=== PATIENT | male | born 1975 | race Caucasian/White ===

== ENCOUNTER → 2019-07-18 | Outpatient (CLI) | payer BC ==
--- NOTE | 2019-07-18 08:41 | CT ---
EXAMINATION TYPE: CT facial bones wo con DATE OF EXAM: 07/18/2019 COMPARISON: None HISTORY: 43-year-old male Facial injury TECHNIQUE: Contiguous axial scanning of the facial bones without IV contrast. Coronal reconstructions performed. CT DLP: 594 mGycm Automated exposure control for dose reduction was used. FINDINGS: 1.9 cm mucosal retention cyst posterior left maxillary sinus. Some mild lobulated mucosal thickening also noted in the right maxillary sinus. Leftward nasal septal deviation. Nasal bones, pterygoid plates, zygomatic arches, and the facial bones appear intact. Orbits and globes also appear intact. Visualized mastoid air cells and middle ear cavities are well pneumatized. Visualized intracranial structures show no gross abnormality. IMPRESSION: 1. RIGHTWARD NASAL SEPTAL DEVIATION AND MILD CHRONIC MAXILLARY SINUS DISEASE, LEFT GREATER THAN RIGHT . 2. NO ACUTE FACIAL BONE FRACTURE SEEN.
== END | disposition home or self-care (01) ==
LOC: RADCTMAIN 07:53
PROVIDERS: ATTEND Otolaryngology
DX: J34.2 Deviated nasal septum (principal); J32.0 Chronic maxillary sinusitis
CPT/HCPCS: 70486

== ENCOUNTER 2023-05-14 14:28 | Day surgery (SDC) | payer BC ==
[2023-05-12 11:26] VITALS: BMI 25.5
[~2023-05-14 14:28] MED LIST: LACTATED RINGERS 1,000 ML IV SCH
[2023-05-14] MEDS ORDERED: LACTATED RINGERS 1,000 ML IV ONE (14:40)
[2023-05-14 14:45] VITALS: TEMP 97.7
[2023-05-14] MEDS ORDERED: PROPOFOL 10 MG/ML 20 ML VIAL IV ONE (15:41)
--- NOTE | 2023-05-14 15:59 | P.PCN ---
Date of Procedure: 05/14/23 Procedure(s) Performed: BRIEF HISTORY: Patient is a 47-year-old pleasant male scheduled for an elective colonoscopy as a part of evaluation of prior history of colon polyps. His last colonoscopy was 5 years ago. He has family history of colon cancer in his first cousin at age 40 PROCEDURE PERFORMED: Colonoscopy with snare polypectomy. PREOPERATIVE DIAGNOSIS: History of colon polyps and family history of colon cancer. IV sedation per Anesthesia. PROCEDURE: After informed consent was obtained, the patient, was brought into the endoscopy unit. IV sedation was administered by Anesthesia under continuous monitoring. Digital rectal examination was normal. Initially the Olympus CF-160 flexible video colonoscope was then inserted in the rectum, gradually advanced into the cecum without any difficulty. Careful examination was performed as the scope was gradually being withdrawn. Ileocecal valve and the appendiceal orifice were visualized and appeared normal. Prep was excellent. Mucosa of the cecum, ascending colon appeared normal. In the transverse colon there was a 5 mm sessile polyp removed by snare polypectomy. Rest of the, transverse colon, descending colon, sigmoid colon, and rectum appeared normal. Retroflexion was performed in the rectum and no lesions were seen. The patient tolerated the procedure well. IMPRESSION: 5 mm transverse colon polyp status post polypectomy Rest of the colon appeared normal RECOMMENDATIONS: Findings of this examination were discussed with the patient as well as his family. He was advised to follow with the biopsy results and have a repeat colonoscopy in 5 years.
[2023-05-14 16:31] VITALS: BP 126/79; PULSE 53; RESP 20
== END 2023-05-14 16:55 ==
LOC: ORWHC2ENDO 14:28
PROVIDERS: ATTEND Internal Medicine Gastroenterology
DX: Z12.11 Encounter for screening for malignant neoplasm of colon (principal); K63.5 Polyp of colon; Z86.010 Personal history of colon polyps; Z80.0 Family history of malignant neoplasm of digestive organs; Z79.899 Other long term (current) drug therapy; Z88.8 Allergy status to other drugs, medicaments and biological substances
CPT/HCPCS: 45385; J2704

== ENCOUNTER → 2024-04-05 | Outpatient (CLI) | payer BC ==
--- NOTE | 2024-04-05 11:17 | XR ---
EXAMINATION TYPE: XR soft tissue neck DATE OF EXAM: 04/05/2024 COMPARISON: NONE HISTORY: Pain TECHNIQUE: 2 views submitted FINDINGS: Postsurgical changes left clavicle. There is mild to moderate hypertrophic arthropathy. C5- 6 and C6-C7. Chronic rib cage deformity on the left. No radiopaque foreign body. Prevertebral soft ti ssue structures are normal. Epiglottis has a normal appearance. Airway appears patent. Tiny linear de nsity seen posterior to the hyoid bone on the lateral view. 2 small to characterize. IMPRESSION: No definite radiopaque foreign body.
== END | disposition home or self-care (01) ==
LOC: RADXRMAIN 09:59
PROVIDERS: ATTEND Otolaryngology
DX: R07.0 Pain in throat (principal)
CPT/HCPCS: 70360

== ENCOUNTER → 2024-04-13 | Outpatient (CLI) | payer BC ==
--- NOTE | 2024-04-13 10:00 | CT ---
EXAMINATION TYPE: CT soft tissue neck w con CT DLP: 446.6 mGycm, Automated exposure control for dose reduction was used. DATE OF EXAM: 04/13/2024 8:26 AM COMPARISON: 11/17/2019. CLINICAL INDICATION:Male, 48 years old with history of T17.208A UNSP FOREIGN BODY IN PHARYNX CAUSING OTH; PHH, pt states fish bone stuck in throat around left side of yaron's apple x3 weeks TECHNIQUE: Standard enhanced CT of the neck. Axial sections with coronal and sagittal reformats were obtained. Contrast used:100 mL of Isovue 300 with IV Contrast, (None if empty) Oral contrast used: (None if empty) FINDINGS: Brain: Visualized portions are grossly unremarkable. Orbits: Unremarkable Sinuses: Grossly unremarkable. Spaces of the neck: Clear and symmetric. No radiopaque foreign bodies identified within the pharynx o r within the visualized esophagus. The trachea and larynx also absent of radiopaque foreign body. Musculoskeletal: No acute osseous pathology. Lymph nodes: Multiple nonenlarged lymph nodes are seen along both anterior chains of the neck. Vascular structures: Visualized major arteries are patent without evidence of aneurysm. Thoracic Inlet/airway: Airway is patent. The lung apices are clear. Soft tissues/Thyroid: Thyroid and remainder of the soft tissues are unremarkable. Other: none. IMPRESSION No radiopaque foreign body within the pharynx or esophagus.
== END | disposition home or self-care (01) ==
LOC: RADCTMAIN 07:44
PROVIDERS: ATTEND Otolaryngology
DX: T17.208A Unspecified foreign body in pharynx causing other injury, initial encounter (principal)
CPT/HCPCS: 70491; Q9967

== ENCOUNTER 2025-05-28 17:29 | Emergency (ER) | payer BC ==
--- NOTE | 2025-05-28 17:46 | ED ---
Abdominal Pain HPI - General Chief Complaint: Abdominal Pain Stated Complaint: L Side Abd Pain Time Seen by Provider: 05/28/25 17:45 Source: patient, family, RN notes reviewed Limitations: no limitations - History of Present Illness Initial Comments: 49-year-old male presented to ER for evaluation of left lower quadrant abdominal pain. Patient reports about 2 days ago he was noticing a bilateral lower quadrant abdominal discomfort. He states over the past couple of days pain has become focally to the left lower quadrant. He states it is a sharp consistent pain making it difficult to cough and walk. Patient is taken [id number] Aleve for current symptoms. Patient denies any fevers, chills, diarrhea/constipation, dysuria, increasing urinary frequency or hematuria. He denies any back pain. Prior abdominal surgery of appendectomy. No history of ulcerative colitis or Crohn's disease. Patient also admits to a history of kidney stones but states this feels different. No other complaints - Related Data Home Medications Medication Instructions Recorded Confirmed Glucosamine Sulfate 1,000 mg PO DAILY 05/12/23 05/12/23 Multivit,Calc,Min/FA/K1/Lycop 1 each PO DAILY 05/12/23 05/12/23 [One-A-Day Men's Complete Tab] Previous Rx's Medication Instructions Recorded Amoxic-Pot Clav 875-125Mg 1 tab PO Q12HR #14 tab 05/28/25 [Augmentin 875-125] Allergies Allergy/AdvReac Type Severity Reaction Status Date / Time shellfish derived Allergy Anaphylaxis Verified 05/12/23 11:21 Review of Systems ROS Statement: Those systems with pertinent positive or pertinent negative responses have been documented in the HPI. ROS Other: All systems not noted in ROS Statement are negative. Past Medical History Additional Past Medical History / Comment(s): HAD SOME RECENT DIARRHEA History of Any Multi-Drug Resistant Organisms: None Reported Past Surgical History: Appendectomy, Orthopedic Surgery Additional Past Surgical History / Comment(s): RT ACL REPAIR. COLLAR BONE SX. COLONOSCOPY Past Anesthesia/Blood Transfusion Reactions: No Reported Reaction Past Psychological History: No Psychological Hx Reported Smoking Status: Never smoker - Past Family History Mother Family Medical History: No Reported History General Exam - General Exam Comments Initial Comments: Visual Physical Exam Vital signs reviewed General: Well-appearing, nontoxic, no acute distress. Head: Normocephalic, atraumatic Eyes: PERRLA, EOMI ENT: Airway patent Chest: Nonlabored breathing Skin: No visual rash, normal skin tone Neuro: Alert and oriented 3 Musculoskeletal: No gross abnormalities Limitations: no limitations General appearance: alert, in no apparent distress Respiratory exam: Present: normal lung sounds bilaterally. Absent: respiratory distress, wheezes, rales, rhonchi, stridor Cardiovascular Exam: Present: regular rate, normal rhythm, normal heart sounds. Absent: systolic murmur, diastolic murmur, rubs, gallop, clicks GI/Abdominal exam: Present: soft, tenderness (Left lower quadrant), normal bowel sounds Neurological exam: Present: alert, oriented X3, CN II-XII intact Skin exam: Present: warm, dry, intact, normal color. Absent: rash Course Vital Signs 05/28/25 05/28/25 17:31 21:35 Temperature 98.1 F 98.3 F Pulse Rate 69 78 Respiratory 16 18 Rate Blood Pressure 124/77 129/73 O2 Sat by Pulse 98 100 Oximetry Medical Decision Making - Medical Decision Making I performed the quick note portion of this chart. Electronically signed by Madelin Lira PA-C Was pt. sent in by a medical professional or institution ([facility], [facility], urgent care, hospital, or senior care...) When possible be specific @ -Patient sent to urgent care for further evaluation of abdominal pain. Did you speak to anyone other than the patient for history (EMS, parent, family, police, friend...)? What history was obtained from this source @ -Significant other, bedside, aiding in HPI past medical history. Did you review nursing and triage notes (agree or disagree)? Why? @ -I reviewed and agree with nursing and triage notes Were old charts reviewed (outside hosp., previous admission, EMS record, old EKG, old radiological studies, urgent care reports/EKG's, senior care records)? Report findings @ -No old charts were reviewed Differential Diagnosis (chest pain, altered mental status, abdominal pain women, abdominal pain men, vaginal bleeding, weakness, fever, dyspnea, syncope, head ache, dizziness, GI bleed, back pain, seizure, CVA, palpatations, mental health, musculoskeletal)? @ -Differential Abdominal Pain Men: Appendicitis, cholecystitis, diverticulosis, ischemic bowel, pancreatitis, hepatitis, UTI, gastroenteritis, AAA, incarcerated hernia, bowel obstruction, constipation, inflammatory bowel, hepatitis, peptic ulcer disease, splenic infarction, perforated viscus, test icular torsion, this is not meant to be an all-inclusive list EKG interpreted by me (3pts min.). @ -None done X-rays interpreted by me (1pt min.). @ -None done CT interpreted by me (1pt min.). @ -CT ab and pelvis concerning of uncomplicated sigmoid diverticulitis. No free air or organized fluid collection. No bowel obstruction. U/S interpreted by me (1pt. min.). @ -None done What testing was considered but not performed or refused? (CT, X-rays, U/S, labs)? Why? @ -None What meds were considered but not given or refused? Why? @ -None Did you discuss the management of the patient with other professionals (professionals i.e. , PA, [facility], lab, RT, psych nurse, social media campaign manager, commercial relationship manager, teacher, personal banking officer, case management associate)? Give summary @ -No Was smoking cessation discussed for >3mins.? @ -No Was critical care preformed (if so, how long)? @ -No Were there social determinants of health that impacted care today? How? (Homelessness, low income, unemployed, alcoholism, drug addiction, transportation, low edu. Level, literacy, decrease access to med. care, [facility], rehab)? @ -No Was there de-escalation of care discussed even if they declined (Discuss DNR or withdrawal of care, Hospice)? DNR status @ -No What co-morbidities impacted this encounter? (DM, HTN, Smoking, COPD, CAD, Can cer, CVA, ARF, Chemo, Hep., AIDS, mental health diagnosis, sleep apnea, morbid obesity)? @ -None Was patient admitted / discharged? Hospital course, mention meds given and route, prescriptions, significant lab abnormalities, going to OR and other pertinent info. @ -Discharge. 49-year-old male presented the ER for evaluation of left lower quadrant abdominal pain. Workup initiated in triage. Vital signs stable. Upon my examination, there is focal left lower quadrant abdominal tenderness with normal bowel sounds. No rebound or guarding. Laboratory studies remarkable for leukocytosis of 11.9 with left shift. Otherwise unimpressive. Urinalysis with trace protein no evidence of infection. CT abdomen pelvis concerning of an uncomplicated sigmoid diverticulitis for which patient will be started on Augmentin, first dose in the emergency department. Patient provided with symp tomatic control with IV fluids and Toradol. Upon reevaluation, patient resting comfortably on stretcher no signs acute distress. Patient educated on today's findings, all questions answered. I advised him to follow-up closely with PCP and GI to ensure resolution and further evaluation. Strict return parameters discussed. Patient discharged stable condition. Patient verbally expressed understand agree with care plan. Case discussed with ED attending by Dr. Muro. Undiagnosed new problem with uncertain prognosis? @ -No Drug Therapy requiring intensive monitoring for toxicity (Heparin, Nitro, Insulin, Cardizem)? @ -No Were any procedures done? @ -No Diagnosis/symptom? @ -Diverticulitis Acute, or Chronic, or Acute on Chronic? @ -Acute Uncomplicated (without systemic symptoms) or Complicated (systemic symptoms)? @ -Uncomplicated Side effects of treatment? @ -No Exacerbation, Progression, or Severe Exacerbation? @ -No Poses a threat to life or bodily function? How? (Chest pain, [place], [place], pneumonia, PE, COPD, DKA, ARF, appy, cholecystitis, CVA, Diverticulitis, Homicidal, Suicidal, threat to staff... and all critical care pts) @ -Low at this time - Lab Data Result diagrams: 05/28/25 17:56 05/28/25 17:56 Lab Results 05/28/25 05/28/25 05/28/25 Range/Units 17:47 17:56 17:56 WBC 11.90 H (4.50-10.00) 10*3/uL RBC 5.19 (4.40-5.60) 10*6/uL Hgb 15.6 (13.0-17.0) g/dL Hct 46.6 (39.6-50.0) % MCV 89.8 (80.0-97.0) fL MCH 30.1 (27.0-32.0) pg MCHC 33.5 (32.0-37.0) g/dL Plt Count 289 (140-440) 10*3/uL MPV 8.7 L (9.5-12.2) fL Immature Gran % (Auto) 0.5 % Neutrophils % 74.5 % Lymphocytes % 16.7 % Monocytes % 6.6 % Eosinophils % 1.3 % Basophils % 0.4 % Immature Gran # 0.06 H (0.00-0.04) 10*3/uL Neutrophils # 8.86 H (1.80-7.70) 10*3/uL Lymphocytes # 1.99 (0.90-5.00) 10*3/uL Monocytes # 0.79 (0.20-1.00) 10*3/uL Eosinophils # 0.15 (0.04-0.35) 10*3/uL Basophils # 0.05 (0.00-0.10) 10*3/uL Sodium 138 (137-145) mmol/L Potassium 4.6 (3.5-5.1) mmol/L Chloride 103 (98-107) mmol/L Carbon Dioxide 25 (22-30) mmol/L Anion Gap 10 mmol/L BUN 16 (9-20) mg/dL Creatinine 1.16 (0.66-1.25) mg/dL Est GFR (CKD-EPI)AfAm 86 (>60 ml/min/1.73 sqM) Est GFR (CKD-EPI)NonAf 74 (>60 ml/min/1.73 sqM) Glucose 115 H (74-99) mg/dL Plasma Lactic Acid Berny (0.7-2.0) mmol/L Calcium 9.4 (8.4-10.2) mg/dL Total Bilirubin 1.9 H (0.2-1.3) mg/dL AST 32 (17-59) U/L ALT 36 (4-49) U/L Alkaline Phosphatase 102 (38-126) U/L Total Protein 7.5 (6.3-8.2) g/dL Albumin 4.7 (3.5-5.0) g/dL Amylase 58 (30-110) U/L Lipase 72 (23-300) U/L Urine Color Yellow Urine Appearance Clear (Clear) Urine pH 6.5 (5.0-8.0) Ur Specific [place] 1.022 (1.001-1.035) Urine Protein Trace H (Negative) Urine Glucose (UA) Negative (Negative) Urine Ketones Negative (Negative) Urine Blood Negative (Negative) Urine Nitrite Negative (Negative) Urine Bilirubin Negative (Negative) Urine Urobilinogen <2.0 (<2.0) mg/dL Ur Leukocyte Esterase Negative (Negative) 05/28/25 Range/Units 17:56 WBC (4.50-10.00) 10*3/uL RBC (4.40-5.60) 10*6/uL Hgb (13.0-17.0) g/dL Hct (39.6-50.0) % MCV (80.0-97.0) fL MCH (27.0-32.0) pg MCHC (32.0-37.0) g/dL Plt Count (140-440) 10*3/uL MPV (9.5-12.2) fL Immature Gran % (Auto) % Neutrophils % % Lymphocytes % % Monocytes % % Eosinophils % % Basophils % % Immature Gran # (0.00-0.04) 10*3/uL Neutrophils # (1.80-7.70) 10*3/uL Lymphocytes # (0.90-5.00) 10*3/uL Monocytes # (0.20-1.00) 10*3/uL Eosinophils # (0.04-0.35) 10*3/uL Basophils # (0.00-0.10) 10*3/uL Sodium (137-145) mmol/L Potassium (3.5-5.1) mmol/L Chloride (98-107) mmol/L Carbon Dioxide (22-30) mmol/L Anion Gap mmol/L BUN (9-20) mg/dL Creatinine (0.66-1.25) mg/dL Est GFR (CKD-EPI)AfAm (>60 ml/min/1.73 sqM) Est GFR (CKD-EPI)NonAf (>60 ml/min/1.73 sqM) Glucose (74-99) mg/dL Plasma Lactic Acid Berny 1.1 (0.7-2.0) mmol/L Calcium (8.4-10.2) mg/dL Total Bilirubin (0.2-1.3) mg/dL AST (17-59) U/L ALT (4-49) U/L Alkaline Phosphatase (38-126) U/L Total Protein (6.3-8.2) g/dL Albumin (3.5-5.0) g/dL Amylase (30-110) U/L Lipase (23-300) U/L Urine Color Urine Appearance (Clear) Urine pH (5.0-8.0) Ur Specific [place] (1.001-1.035) Urine Protein (Negative) Urine Glucose (UA) (Negative) Urine Ketones (Negative) Urine Blood (Negative) Urine Nitrite (Negative) Urine Bilirubin (Negative) Urine Urobilinogen (<2.0) mg/dL Ur Leukocyte Esterase (Negative) - Radiology Data Radiology results: report reviewed, image reviewed Disposition Clinical Impression: Diverticulitis Disposition: HOME SELF-CARE Condition: Stable Instructions (If sedation given, give patient instructions): Diverticulitis (DC), Diverticulitis Diet (ED) Additional Instructions: Complete full course of antibiotics. You may take [id number] ibuprofen and Tylenol for pain control. Follow-up closely with PCP. Return to the ER for any new or worsening concerns. Prescriptions: Amoxic-Pot Clav 875-125Mg [Augmentin 875-125] 1 tab PO Q12HR #14 tab Is patient prescribed a controlled substance at d/c from ED?: No Referrals: Haseeb Ashley MD [Primary Care Provider] - 1-2 days Brigette Brooks MD [STAFF PHYSICIAN] - 1-2 days Time of Disposition: 21:16
[2025-05-28 18:13] LABS: Appearance,Urine Clear (Clear); Bilirubin,Urine Negative (Negative); Blood,Urine Negative (Negative); Color,Urine Yellow; Glucose,Urine (UA) Negative (Negative); Ketones,Urine Negative (Negative); Leukocyte Esterase,Urine Negative (Negative); Nitrite,Urine Negative (Negative); PH, Urine 6.5 (5.0-8.0); Protein,Urine Trace (Negative); Specific Gravity,Urine 1.022 (1.001-1.035); Urobilinogen,Urine <2.0 mg/dL (<2.0)
[2025-05-28 18:18] LABS: Basophils # (A) 0.05 10*3/uL (0.00-0.10); Basophils % (A) 0.4 %; Eosinophils # (A) 0.15 10*3/uL (0.04-0.35); Eosinophils % (A) 1.3 %; HCT 46.6 % (39.6-50.0); HGB 15.6 g/dL (13.0-17.0); Lymphocytes # (A) 1.99 10*3/uL (0.90-5.00); Lymphocytes % (A) 16.7 %; MCH 30.1 pg (27.0-32.0); MCHC 33.5 g/dL (32.0-37.0); MCV 89.8 fL (80.0-97.0); Mean Platelet Volume 8.7 fL (9.5-12.2); Monocytes # (A) 0.79 10*3/uL (0.20-1.00); Monocytes % (A) 6.6 %; Neutrophils # (A) 8.86 10*3/uL (1.80-7.70); Neutrophils % (A) 74.5 %; Platelet Count 289 10*3/uL (140-440); RBC 5.19 10*6/uL (4.40-5.60); RDW 13.1 % (11.5-14.5)
[2025-05-28 18:27] LABS: ALT 36 U/L (4-49); AST 32 U/L (17-59); African American GFR (CKD) 86 (>60 ml/min/1.73 sqM); Albumin 4.7 g/dL (3.5-5.0); Alkaline Phosphatase 102 U/L (38-126); Amylase 58 U/L (30-110); Anion Gap 10 mmol/L; Blood Urea Nitrogen 16 mg/dL (9-20); Calcium 9.4 mg/dL (8.4-10.2); Carbon Dioxide 25 mmol/L (22-30); Chloride 103 mmol/L (98-107); Glucose 115 mg/dL (74-99); Lipase 72 U/L (23-300); Non-African American GFR(CKD) 74 (>60 ml/min/1.73 sqM); Potassium 4.6 mmol/L (3.5-5.1); Sodium 138 mmol/L (137-145); Total Bilirubin 1.9 mg/dL (0.2-1.3); Total Protein 7.5 g/dL (6.3-8.2)
[2025-05-28] MEDS: SODIUM CHLORIDE 0.9% 1,000 ML IV ONE (21:00)
[2025-05-28] MEDS: KETOROLAC 15 MG/ML 1 ML VIAL IVP STA (21:00)
--- NOTE | 2025-05-28 21:05 | CT ---
INDICATION: Patient age:Male; 49 years old; Reason for study: LLQ abd pain; PHH. COMPARISON: CT abdomen/pelvis 07/03/2013. TECHNIQUE: Standard CT of the abdomen and pelvis following the administration of IV contrast materi al. Contrast details are in the paperwork of the patient's chart. Coronal and sagittal reformats were performed. One or more CT dose reduction strategies were utilized during this examination. Total DLP administered was 798.4 mGycm. FINDINGS: LOWER CHEST: Unremarkable ABDOMEN LIVER: Unremarkable. GALLBLADDER AND BILE DUCTS: Unremarkable. PANCREAS: Unremarkable. SPLEEN: Unremarkable. ADRENAL GLANDS: Unremarkable. KIDNEYS AND URETERS: No evidence of hydronephrosis . Sub-5 mm nonobstructive bilateral renal calculi. The ureters are unremarkable. PELVIS URINARY BLADDER: Incompletely distended but grossly unremarkable. REPRODUCTIVE: Coarse calcifications of the prostate gland are identified. The prostate is not enlarge d. ABDOMEN & PELVIS STOMACH AND BOWEL: Stomach is grossly unremarkable. Small bowel is of normal caliber. There is a shor t segment of perisigmoid colonic stranding surrounding a few diverticula. No organized pericolonic fl uid collection seen at this time. No pneumatosis. No evidence of bowel obstruction. PERITONEUM: No evidence of pneumoperitoneum or free fluid. VASCULATURE: No evidence of aortic aneurysm. MUSCULOSKELETAL: No acute osseous abnormalities LYMPH NODES: Unremarkable. SOFT TISSUE/ABDOMINAL WALL: Unremarkable IMPRESSION: 1. Uncomplicated short segment sigmoid diverticulitis. 2. Nonobstructive subcentimeter bilateral renal calculi. No hydronephrosis. [facility], , 05/28/2025 9:03 PM
[2025-05-28] MEDS: AMOXIC-POT CLAV 875-125MG 1 EACH TAB PO STA (21:31)
[2025-05-28 21:36] VITALS: BP 129/73; PULSE 78; RESP 18; TEMP 98.3
== END 2025-05-28 21:36 | disposition home or self-care (01) ==
LOC: EC 17:29
DX: K57.32 Diverticulitis of large intestine without perforation or abscess without bleeding (principal); Z91.013 Allergy to seafood
CPT/HCPCS: 36415; 80053; 82150; 83605; 83690; 85025; 81003; 74177; 99284; 96374; 96361; J1885; Q9967